=== PATIENT | female | born 1960 | race Caucasian/White ===

== ENCOUNTER 2018-12-02 08:10 | Emergency (ER) | payer BC, OTHER ==
[~2018-12-02] VITALS: Ht 167.6 cm; Wt 85.5 kg
[2018-12-02 08:14] VITALS: BP 136/64; PULSE 76; RESP 20; Ht 167.6 cm; Wt 85.5 kg
[2018-12-02] MEDS ORDERED: KETOROLAC 30 MG INJ IV STA (09:06)
[2018-12-02] MEDS ORDERED: MED4DP PO (09:08)
[2018-12-02] MEDS ORDERED: NAPR-985 PO (09:08)
[2018-12-02] MEDS ORDERED: predniSONE 20 MG TAB PO ONE (09:30)
--- NOTE | 2018-12-02 09:30 | ERD ---
ER Documentation Chief Complaint Chief Complaint Complains of severe back and leg pain x 3 days HPI 58yo F presents with complaint of Right sided back pain x 3 days. Pt denies trauma, injury, or heavy lifting, but notes repetitive movements at work. Pt rates pain as a 9/10 burning pain radiating down the right leg. She denies loss of motor function, bowel/bladder incontinence, or saddle anesthesia. Pt has a history of Left sided sciatica and notes pain is similar to previous sciatica exacerbations. Pt denies hx of DM, malignancy, or IVDA. ROS All systems reviewed and are negative except as per history of present illness. Medications Home Meds Active Scripts Methylprednisolone* (Medrol* DOSE PACK) 4 Mg/Dose-Pack Tab.ds.pk, 4 MG PO . DIRECTED for INFLAMMATION for 6 Days, PACKET Prov:NORA SHEARER PA-C 12/02/18 Naproxen* (Naprosyn*) 500 Mg Tablet, 500 MG PO BID PRN for PAIN AND/OR INFLAMMATION, #30 TAB Prov:NORA SHEARER PA-C 12/02/18 Allergies Allergies: Coded Allergies: No Known Allergy (Unverified , 10/05/14) PMhx/Soc History of Surgery: No Anesthesia Reaction: No Hx Neurological Disorder: No Hx Respiratory Disorders: No Hx Cardiac Disorders: No Hx Psychiatric Problems: No Hx Miscellaneous Medical Probl: No Hx Alcohol Use: No Hx Substance Use: No Hx Tobacco Use: No FmHx Family History: No diabetes, No coronary disease, No other Physical Exam Vitals Vital Signs Date Temp Pulse Resp B/P (MAP) Pulse Ox O2 O2 Flow FiO2 Time Delivery Rate 12/02/18 97.9 76 20 136/64 98 08:14 (88) Physical Exam GEN: Alert and coherent. Well appearing, non-toxic. No acute distress. HEAD: Normocephalic, atraumatic. EYES: EOMI. PERRL. No conjunctival injection. No scleral icterus. No Discharge ENT: Nasal passages patent. Moist mucous membranes. No erythema or tonsillar exudates. NECK: Supple. Full range of motion. Trachea midline. No lymphadenopathy. RESP: No tachypnea. Clear to auscultation bilaterally. No wheezing, rales or rhonchi. No accessory muscle use. CV: Regular rate and rhythm. No murmurs, rubs, or gallops. ABD: Soft, non-distended, non-tender. No guarding. No rebound tenderness or rigidity. No masses. Positive bowel sounds in all four quadrants. BACK: Full ROM. No CVA tenderness. Inspection normal, no midline tenderness. +TTP Right SI joint. bilateral positive straight leg raise, R>L, normal dorsiflexion BLE, NVI distally MSK: No deformity. No clubbing, cyanosis or edema. Equal pulses x 4. SKIN: Warm and dry. No obvious rashes, erythema, or petechiae. NEURO: Alert and oriented x3. Appropriate speech, mood and affect. Face is symmetric. Speech is normal. CN II-XII intact. Moves all extremities equally. Ambulates with a strong, steady gait. Results 24 hrs Current Medications Medications Dose Sig/Troy Start Time Status Last (Trade) Ordered Route PRN Stop Time Admin Dose Reason Admin Ketorolac 30 mg ONCE STAT 12/02/18 DC 12/02/18 Tromethamine IV 09:06 12/02/18 09:12 (Toradol) 09:08 Prednisone 40 mg ONCE ONCE 12/02/18 DC 12/02/18 (Prednisone) PO 09:30 12/02/18 09:12 09:31 Procedures/MDM MDM: 58yo F patient presents today with atraumatic back pain. Although infection, malignancy, GI, , and vascular causes have been considered in this patient, the patients clinical presentation is most consistent with sciatica. There is neither evidence of any acute neurologic damage, nor of loss of fun ction and thus, advanced imaging studies have been deferred. Patient will be treated conservatively with appropriate pain control with precautionary discharge instructions provided. Pt advised to f/u with PCP within next 1-2 days for possible referral to physical therapy. Pt stable for discharge at this time with outpatient management given no acute or emergent findings. Pt given handout regarding sciatica and counseled regarding stretches and back health. ED return precautions discussed. Pt expressed verbal understanding and agreement to treatment plan. All questions addressed and answered. Departure Diagnosis: Primary Impression: Sciatica Condition: Stable Patient Instructions: Back Pain W/ Sciatica Additional Instructions: Please follow-up with your PCP for possible referral to physical therapy as you have been diagnosed with sciatica today NORA SHEARER PA-C December 02, 2018 09:30
== END 2018-12-02 09:36 | disposition home or self-care (01) ==
LOC: FTE 08:10
DX: M54.40 Lumbago with sciatica, unspecified side (principal)
CPT/HCPCS: 96374; 99284; J1885; J7512